=== PATIENT | female | born 1990 | race Caucasian/White ===

== ENCOUNTER 2024-07-02 08:04 | Emergency (ER) | payer MEDICAID ==
[~2024-07-02] VITALS: Ht 162.6 cm; Wt 54.4 kg
[~2024-07-02 08:04] MED LIST: NITR-85 PO; PHEN-726 PO
[2024-07-02 08:05] VITALS: BP_SYST 126; PULSE 102; RESP 19; TEMP 97; O2SAT 97
[2024-07-02] MEDS ORDERED: CLIN-142 PO (08:16)
[2024-07-02] MEDS ORDERED: IBUP-1969 PO (08:16)
[2024-07-02] MEDS: CLINDAMYCIN HCL 150 MG CAPSULE PO ONE (08:28)
[2024-07-02] MEDS: IBUPROFEN 600 MG TABLET PO ONE (08:29)
[2024-07-02 08:45] VITALS: BP_SYST 126; PULSE 102; RESP 19; TEMP 97; O2SAT 97
== END 2024-07-02 08:45 | disposition home or self-care (01) ==
LOC: SED 08:04
DX: K02.9 Dental caries, unspecified (principal); K08.89 Other specified disorders of teeth and supporting structures; J45.909 Unspecified asthma, uncomplicated; Z79.899 Other long term (current) drug therapy; Z79.2 Long term (current) use of antibiotics
CPT/HCPCS: 99283